=== PATIENT | female | born 1975 | race Caucasian/White ===

== ENCOUNTER → 2022-11-15 | Outpatient (CLI) | payer OTHER ==
--- NOTE | 2022-11-16 21:41 | MR ---
EXAMINATION TYPE: MR shoulder RT wo con DATE OF EXAM: 11/15/2022 COMPARISON: Radiograph 11/06/2022 HISTORY: 47-year-old female M25.511, Rt shoulder pain TECHNIQUE: Multiplanar, multisequence imaging of the right shoulder is performed without contrast. FINDINGS: The long biceps tendon is perched medially overlying the lesser tuberosity. Suspect fraying and fissuring at the junction of the intracapsular and extracapsular portions of the tendons. Mild t o moderate tenosynovial fluid along the groove. These changes suggest partial tear of the superior fibers of the subscapularis tendon. The majority o f the tendon appears intact. Mild degenerative change at the AC joint. No significant mass effect onto the underlying cuff. Heterogeneous signal throughout the supraspinatus and infraspinatus tendons. There is a bursal sided tear of the anterior to mid supraspinatus tendon measuring 1.3 cm long and 1. 7 cm AP. There involves more than 50% thickness. Intermediate signal within the overlying subacromial/subdeltoid bursa along with mild to moderate foc al effusion below the acromion. No significant atrophy of the rotator cuff musculature. There is moderate degenerative change at the glenohumeral joint with irregular cartilage loss and mar ginal spurring. Abnormal signal extending into the substance of the superior labrum with blunted and degenerative posterior labrum. There is a small to moderate left joint effusion with underlying moder ate chronic synovitis. No Hill-Sachs deformity or os acromiale. Patchy red marrow is present and can be seen in setting of a nemia, obesity, smoking, chronic disease. IMPRESSION: 1. Diffuse rotator cuff tendinosis. There is a high-grade bursal sided tear of the anterior to mid hernandez praspinatus tendon measuring 1.3 cm long by 1.7 cm AP. No rotator cuff muscle atrophy. 2. Tear of the superior subscapularis tendon allowing for perching of the long head biceps tendon med ially along the upper bicipital groove. The majority of the tendon remains intact. 3. Mild long head biceps tenosynovitis. There appears to be fraying and fissuring of the tendon at th e junction of the intracapsular and extracapsular portions. 4. Moderate glenohumeral joint OA with small joint effusion but with moderate chronic synovitis. Acco mpanying SLAP tear. 5. Mild AC joint OA.
== END | disposition home or self-care (01) ==
LOC: RADMRIMAIN 12:52
PROVIDERS: ATTEND Orthopaedic Surgery
DX: M19.011 Primary osteoarthritis, right shoulder (principal); M25.411 Effusion, right shoulder

== ENCOUNTER → 2022-12-20 | Outpatient (CLI) | payer OTHER ==
[2022-12-20 15:21] LABS: Basophils # (A) 0.07 X 10*3/uL (0.00-0.10); Basophils % (A) 1.1 %; Eosinophils # (A) 0.13 X 10*3/uL (0.04-0.35); HCT 40.5 % (37.2-46.3); HGB 13.3 d/dL (12.0-15.0); Lymphocytes # (A) 2.19 X 10*3/uL (0.90-5.00); MCH 31.2 pg (27.0-32.0); MCHC 32.8 d/dL (32.0-37.0); MCV 95.1 FL (80.0-97.0); Monocytes # (A) 0.55 X 10*3/uL (0.20-1.00); Monocytes % (A) 8.3 %; NRBC Per 100 WBC 0 X 10*3/uL (0.00-0.01); Neutrophils # (A) 3.69 X 10*3/uL (1.80-7.70); Neutrophils % (A) 55.4 %; Platelet Count 350 X 10*3/uL (140-440); RBC 4.26 X 10*6/uL (4.10-5.20); RDW 13.7 % (11.5-14.5); WBC 6.64 X 10*3/uL (4.50-10.00)
[2022-12-20 20:11] LABS: Anion Gap 10.7 mmol/L (4.00-12.00); Carbon Dioxide 26.3 mmol/L (21.6-31.8); Potassium 4.7 mmol/L (3.5-5.5)
== END | disposition home or self-care (01) ==
LOC: LABPAT 10:57
PROVIDERS: ATTEND Orthopaedic Surgery
DX: Z01.812 Encounter for preprocedural laboratory examination (principal); M75.41 Impingement syndrome of right shoulder
CPT/HCPCS: 80051; 85025

== ENCOUNTER 2023-01-01 06:47 | Day surgery (SDC) | payer OTHER ==
[2022-12-30 11:52] VITALS: BMI 25.3
[2023-01-01] MEDS ORDERED: LIDOCAINE 1% (10MG/ML) FOR IV START INTRADERMA ONE (07:28)
[2023-01-01] MEDS ORDERED: LACTATED RINGERS 1,000 ML IV ONE ×2 (07:28→09:50)
[2023-01-01] MEDS ORDERED: ONDANSETRON 4 MG/2 ML VIAL ONE (07:31)
[2023-01-01] MEDS ORDERED: DEXAMETHASONE SOD PHOSPHATE 4 MG/ML 1 ML VIAL IV ONE (07:34)
[2023-01-01] MEDS ORDERED: MIDAZOLAM 2 MG/2 ML VIAL IVP ONE (07:53)
--- NOTE | 2023-01-01 08:16 | HP ---
HISTORY AND PHYSICAL DATE OF SURGERY: 01/01/2023. HISTORY OF PRESENT ILLNESS: Jorge Echavarria is a 47-year-old patient, seen with progressive right shoulder pain. We discussed options for treatment. The patient elected to proceed with right shoulder arthroscopy. Consent regarding procedure obtained. PAST MEDICAL HISTORY: Noncontributory. PAST SURGICAL HISTORY: Nasal surgery. DAILY MEDICATIONS: Aleve. ALLERGIES: 1. Penicillin. 2. Sulfa. SOCIAL HISTORY: The patient denies tobacco use. PHYSICAL EVALUATION OF THE RIGHT SHOULDER: Flexion is 140 degrees, abduction is 110 degrees, external rotation is 30 degrees with pain and weakness. Tenderness along the anterolateral acromion and rotator cuff insertion site. Impingement sign is positive at 70 degrees. Cross-body adduction sign is positive. Drop-arm sign is positive. Distal neurovascular exam is intact. IMAGING STUDIES: Radiographs of the right shoulder revealed a type 2 acromion along with cystic changes of the tuberosity. An MRI of the right shoulder revealed rotator cuff tear, labral tear, osteoarthritic changes, and partial biceps tendon tear. IMPRESSION: 1. Right shoulder impingement with rotator cuff tear. 2. Right shoulder labral tear. 3. Right shoulder partial long head biceps tendon tear. 4. Right shoulder moderate glenohumeral joint osteoarthritis. PLAN: Right shoulder arthroscopy with subacromial decompression, arthroscopic rotator cuff repair, biceps tenodesis, and debridement. MMODL / IJN: [id number] /
[2023-01-01] MEDS ORDERED: PROPOFOL 10 MG/ML 20 ML VIAL IV ONE (08:22)
[2023-01-01] MEDS ORDERED: MIDAZOLAM 2 MG/2 ML VIAL ONE (08:22)
[2023-01-01] MEDS ORDERED: PHENYLEPHRINE-0.9% NACL SYG 1,000 MCG/10 ML SYRINGE ONE (08:22)
[2023-01-01] MEDS ORDERED: fentaNYL (PF) 50 MCG/ML 2 ML AMP ONE (08:22)
[2023-01-01] MEDS ORDERED: ROPIVACAINE 5 MG/ML 30 ML VIAL ONE (08:22)
[2023-01-01] MEDS ORDERED: KETOROLAC 30 MG/ML 1 ML VIAL ONE (08:22)
[2023-01-01] MEDS ORDERED: SUCCINYLCHOLINE CHLORIDE 200 MG/10 ML VIAL IV ONE (08:22)
[2023-01-01] MEDS ORDERED: DEXAMETHASONE SOD PHOSPHATE 4 MG/ML 1 ML VIAL ONE (08:22)
[2023-01-01] MEDS ORDERED: LIDOCAINE 2% INJ 20 MG/ML (2 ML VIAL) ONE (08:22)
[2023-01-01] MEDS ORDERED: ROCURONIUM 10 MG/ML (5 ML VIAL) IV ONE (08:22)
--- NOTE | 2023-01-01 10:21 | P.OP ---
Date of Procedure: 01/01/23 Preoperative Diagnosis: Right shoulder impingement Postoperative Diagnosis: 1. Right shoulder rotator cuff tear 2. Right shoulder impingement 3. Right shoulder labral tear 4. 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 Right shoulder grade 3/4 chondromalacia glenoid fossa Procedure(s) Performed: 1. Arthroscopic rotator cuff repair right shoulder 2. Arthroscopic subacromial decompression right shoulder 3. Arthroscopic debridement labral tear right shoulder Implants: 4Arthrex 4.75 swivel lock anchors Anesthesia: GETA, regional (Interscalene block) Surgeon: Basil Ramesh [employer] Tester #1: Segundo Alexander Estimated Blood Loss (ml): 11 Pathology: none sent Condition: stable Disposition: PACU Indications for Procedure: 47-year-old patient seen with progressive right shoulder pain. After having treatment options discussed, she elected to proceed with arthroscopy. Operative Findings: See description of procedure Description of Procedure: Patient underwent an interscalene block by department of anesthesia. The patient was then taken to the operative suite. The patient underwent a general anesthetic by the department of anesthesia. The patient was placed into a lateral position and secured. There was appropriate padding of the bony prominence. Right shoulder was then prepped and draped in normal sterile orthopedic fashion. We placed the extremity in 10 pounds of longitudinal traction. A posterior incision was now made for a posterior working portal site. The trocar and cannula were inserted into the glenohumeral joint. Arthroscopy wa s initiated. Spinal needle was now inserted anteriorly, to ascertain the anterior working portal site. An incision was now made in that area, a trocar was inserted followed by a probe. There was some superficial tearing of the superior and anterior labrum. There were grade 4 chondromalacia changes of the humeral head with a large area of exposed bone. There were grade 3/4 chondromalacia changes of the glenoid fossa. There was some mild partial tearing long head biceps tendon. I debrided out the superficial labral tears along with a partial tearing long head biceps tendon. The residual labrum was probed and was found to be stable. Instruments were now removed from glenohumeral joint. Utilizing the posterior working portal site, the trocar and cannula were inserted into the subacromial space. Arthroscopy initiated. I made an incision 2 fingerbreadths lateral to the acromion. I introduced my trocar followed by my ArthroCare ablator. I now began ablating thick subacromial bursal tissue, which exposed the undersurface of the anterior acromion. There was diminished subacromial space. There was a very prominent anterior acromion. A motorized bur was introduced and a subacromial decompression was performed. I also excised some osteophytes off the inferior aspect of the distal clavicle. The AC joint was visualized and noted to mildly arthritic, I did not think enough [facility]. I turned my attention to the rotator cuff. There was a 22.5 cm rotator cuff tear. I debrided the margins getting down to stable tendon tissue. The defect/tear measured around 2.5 cm it was freely mobile over the footprint. I introduced my motorized bur and abraded the footprint area, getting some petechial bleeding. I now made an accessory portal site off the lateral aspect of the acromion. I punched 2 holes medial for medial row fixation with the assistance of Wali ALMANZAR carefully tapping the punch with a mallet as I held the punch and the camera. I now introduced both anchors into the pre- punched holes and Wali ALMANZAR tapped them with the mallet as I held anchors and the camera. Wali ALMANZAR now screwed the anchors in place a while I held the anchor guide and camera. All 8 limbs of suture were now passed through good bites of rotator cuff tendon. I now punched 2 holes for lateral row fixation again I held the punch and camera while Wali ALMANZAR used a mallet to tap in the punch. We now passed sutures through both anchors and individually I introduced the anchors into the pre-punch holes I held the anchor guide in position with one hand holding the camera with the other hand while Wali ALMANZAR tensioned the sutures and screwed in the anchors one at a time. All residual suture limbs were now clipped. We had good compression of the tendon along the entire footprint. Instruments now removed from the portal sites. All portal sites were approximated with nylon suture. Sterile dressings were applied followed by a shoulder immobilizer. Segundo ALMANZAR assisted in this complex case. The patient was awakened, transferred to a bed, and taken to recovery in stable condition.
[2023-01-01 10:26] VITALS: TEMP 97
[2023-01-01 13:14] VITALS: BP 131/89; PULSE 66; RESP 16
--- NOTE | 2023-01-02 10:29 | P.ANPRN ---
Procedure Note - Anesthesia - Nerve Block Performed Right Interscalene Single Time Out Performed: Yes Date of Procedure: 01/01/23 Procedure Start Time: 07:53 Procedure Stop Time: 07:58 Location of Patient: PreOp Indication: Acute Post-Operative Pain, Requested by Surgeon Sedation Type: Sedate with meaningful contact maintained Preparation: Sterile Prep Position: Supine Needle Types: Pajunk Needle Gauge: 21 Ultrasound used to visualize needle placement: Yes Ultrasound used to observe medication spread: Yes Blood Aspirated: No Pain Paresthesia on Injection Noted: No Resistance on Injection: Normal Image Stored and Saved: Yes Events: Uneventful and Well Tolerated (Ropivacaine 0.5% 20 mL plus dexamethasone 4 mg)
== END 2023-01-01 11:58 | disposition home or self-care (01) ==
LOC: OR 06:47
PROVIDERS: ATTEND Orthopaedic Surgery
DX: M75.41 Impingement syndrome of right shoulder (principal); M75.101 Unspecified rotator cuff tear or rupture of right shoulder, not specified as traumatic; G89.18 Other acute postprocedural pain; S43.491A Other sprain of right shoulder joint, initial encounter; M94.261 Chondromalacia, right knee; F17.210 Nicotine dependence, cigarettes, uncomplicated; Z88.0 Allergy status to penicillin; Z88.2 Allergy status to sulfonamides; Z79.899 Other long term (current) drug therapy; X58.XXXA Exposure to other specified factors, initial encounter
CPT/HCPCS: 64415; 81025; 29827; 29826; C1894; C1713; J2250; J0330; J1100; J2405; J0690; J3010; J1885; J2795; J2704; J2001; J2371

== ENCOUNTER → 2023-08-12 | Outpatient (CLI) | payer OTHER ==
--- NOTE | 2023-08-13 09:01 | MM ---
Reason for Exam: Screening (asymptomatic). Baseline mammogram. Patient History: Menarche at age 10. First Full-Term at age 19. Patient has history of breast feeding. Last menstrual period: 06/22/2023 Risk Values: Penny 5 year model risk: 0.9%. NCI Lifetime model risk: 8.9%. Prior Study Comparison: Patient's first Mammogram. Tissue Density: The breasts are extremely dense, which lowers the sensitivity of mammography. Findings: Analyzed By CAD. Right breast: There is no suspicious group of microcalcifications or new suspicious mass. Left breast: There is no suspicious group of microcalcifications or new suspicious mass. Overall Assessment: Negative, BI-RAD 1 Management: Screening Mammogram of both breasts in [address] [facility] will attempt to contact patient to return for supplemental views and ultrasound if indicated. Patient should continue monthly self-breast exams. A clinical breast exam by your physician is recommended on an annual basis. This exam should not preclude additional follow-up of suspicious palpable abnormalities. Note on Penny scores and lifetime risk: 1. A Penny score greater than 3% is considered moderate risk. If this is the case, consider specialist referral to assess eligibility for a risk reducing agent. 2. If overall lifetime risk for the development of breast cancer is 20% or higher, the patient may qualify for future screening with alternating mammogram and breast MRI. Electronically signed and approved by: Richie Brady DO
== END | disposition home or self-care (01) ==
LOC: RADMAMWWP 11:39
PROVIDERS: ATTEND Family Medicine
DX: Z12.31 Encounter for screening mammogram for malignant neoplasm of breast (principal)
CPT/HCPCS: 77063; 77067

== ENCOUNTER → 2024-01-19 | Outpatient (CLI) | payer OTHER ==
--- NOTE | 2024-01-20 10:29 | MR ---
EXAMINATION TYPE: MR cervical spine wo con DATE OF EXAM: 01/19/2024 1:31 PM COMPARISON: NONE HISTORY: Pain and numbness in left arm and hand Multiplanar MultiSpin echo imaging of the cervical spine was performed. Comparison: none C2-C3: No evidence for degenerative disc disease. No disc bulge/herniation or protrusion. No Canal stenosis. Foramina are patent bilaterally. C3-C4: No evidence for degenerative disc disease. No disc bulge/herniation or protrusion. No Canal stenosis. Foramina are patent bilaterally. C4-C5: Moderate disc desiccation with posterior disc bulge greatest posterior centrally and to the ri ght. There is moderate right foraminal encroachment. No central stenosis appreciated. C5-C6: Moderate to severe disc desiccation with broad-based posterior disc bulge. Mild effacement ramirez tral thecal sac and moderate bilateral foraminal encroachment and mild cervical apophyseal joint arth ropathy. C6-C7: Severe disc desiccation with posterior disc bulge mildly degree. No evidence for herniation or central stenosis. No foraminal encroachment at this time. No Canal stenosis. Foramina are patent bi laterally. C7-T1: No evidence for degenerative disc disease. No disc bulge/herniation or protrusion. No Canal stenosis. Foramina are patent bilaterally. Cervical segments are intact. There is normal alignment. Cervical spinal cord is of normal signal. Craniovertebral junction relationships are within normal limits. Scattered ventral spondylosis. IMPRESSION: 1. 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 [facility], , 01/20/2024 10:26 AM
== END | disposition home or self-care (01) ==
LOC: RADMRIMAIN 12:55
PROVIDERS: ATTEND Orthopaedic Surgery
DX: M62.81 Muscle weakness (generalized) (principal); M99.71 Connective tissue and disc stenosis of intervertebral foramina of cervical region; M50.10 Cervical disc disorder with radiculopathy, unspecified cervical region
CPT/HCPCS: 72141

== ENCOUNTER → 2024-06-10 | Outpatient (CLI) | payer OTHER ==
[2024-06-10 10:46] VITALS: BP 108/72; PULSE 86; RESP 16; TEMP 98.3
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
== END ==
LOC: 3 N SLEEP 10:17
PROVIDERS: ATTEND Internal Medicine
DX: G47.33 Obstructive sleep apnea (adult) (pediatric) (principal); I10 Essential (primary) hypertension; M13.0 Polyarthritis, unspecified; Z98.890 Other specified postprocedural states; F12.90 Cannabis use, unspecified, uncomplicated; Z88.1 Allergy status to other antibiotic agents; Z88.0 Allergy status to penicillin; Z88.2 Allergy status to sulfonamides
CPT/HCPCS: 99211

== ENCOUNTER 2024-07-07 19:36 | Outpatient (CLI) | payer OTHER ==
--- NOTE | 2024-07-15 11:31 | P.PCN ---
Description of Procedure: POLYSOMNOGRAPHY REPORT PROCEDURE(S)/DATE(S): Polysomnography 10/01/2024 CLINICAL: Patient has been seen in the sleep center for evaluation of obstructive sleep apnea-hypopnea syndrome. Please see my consultation. Sleep study has been done for evaluation of patient breathing during the sleep. PROCEDURE: The standard montage for clinical polysomnography included the electroencephalogram, the electrooculogram, the mentalis surface electromyography and Lead II cardiography. The respiratory battery consisted of measurements of nasal/buccal air flow, pressure transducer measurements from nose, thoracic and/or abdominal effort and intercostal surface electromyography. Video monitoring has been done to check for any parasomnia events. Nocturnal oxyhemoglobin saturations were obtained by finger oximetry. Step-puga titration with positive airway pressure was utilized to control the respiratory events, if necessary. RESULTS: During the diagnostic sleep study sleep efficiency was normal 92.1%. Latency to sleep onset was normal 20.5 min. Sleep architecture showed stage NI was extremely high 32.3%, Delta sleep was absent 0%, REM sleep was close to normal 18.4%. Respiratory channel showed 1 obstructive apneas, 0 mixed apneas, 0 central apneas, 305 hypopneas with lowest oxygen level 78%. Total apnea hypopnea index was 51.5. Heart rate was in the range between 46 and 99, average 65. EMG showed 0 periodic limb movements per hour with 0 micro-arousals per hour. IMPRESSIONS: 1. Severe obstructive sleep apnea hypopnea syndrome. 2. No significant periodic limb movements have been documented. Please see other impressions from consultation PLAN: 1. The patient will have PAP titration for correction of respiratory abnormalities during the sleep. 2. No driving if feeling sleepiness. 3. Sleep hygiene with regular time in bed for at least 7-1/2 hours. Sincerely, Nikita Rosen MD, PhD, FAASM. Diplomat of [place] Board [employer] Medicine, Sleep Medicine Board by [place] Board of [employer] Medicine Materials Technician of [facility] [place] cc: Dea Lopez MD
== END 2024-07-08 05:30 | disposition home or self-care (01) ==
LOC: 3 N SLEEP 19:36
PROVIDERS: ATTEND Internal Medicine
DX: G47.33 Obstructive sleep apnea (adult) (pediatric) (principal); Z88.1 Allergy status to other antibiotic agents; Z88.0 Allergy status to penicillin; Z88.2 Allergy status to sulfonamides; F12.90 Cannabis use, unspecified, uncomplicated
CPT/HCPCS: 95810

== ENCOUNTER 2024-08-10 19:41 | Outpatient (CLI) | payer OTHER ==
--- NOTE | 2024-08-11 10:53 | P.PCN ---
Description of Procedure: CLINICAL: Titration with positive air pressure has been done for correction of respiratory abnormalities during sleep. DESCRIPTION OF PROCEDURE: The standard montage for clinical polysomnography included the electroencephalogram, the electrocardiogram, the mentalis surface electromyography and Lead II cardiography. The respiratory battery consisted of measurements of nasal /buccal air flow, pressure transducer measurements from the nose, thoracic and /or abdominal effort and intercostal surface electromyography. Video monitoring has been done to check for any parasomnia events. Nocturnal oxyhemoglobin saturations were obtained by finger oximetry. Step-puga titration with positive airway pressure was utilized to control respiratory events. Raw data of sleep recording has been reviewed and is adequate. RESULTS: Sleep efficiency was normal 88.8%. Latency to sleep onset was borderline 26.5 minutes.]. Sleep architecture showed stage N1 was extremely short 0.1%, Delta sleep was absent 0%, REM sleep significantly increased to 37.1%, possibly REM sleep rebound phenomenon on CPAP. Heart rate was minimum 64 BPM, maximum 72 BPM, average 68 BPM. EMG showed 2 periodic limb movements per hour with 1.2 micriarousals per hour. PAP titration have been done with CPAP up to the pressure 10 cm H2O. The best results were at the pressure 7 cm H2O. Apnea hypopnea index reduced to 4.2, but the patient was not in rem sleep during the sleep study. IMPRESSION: 1. Extremely severe obstructive sleep apnea hypopnea syndrome with original apnea hypopnea index 51.5 mostly on controle with PAP treatment. 2. No significant periodic limb movements have been documented. Please see other impressions from consultation. PLAN: 1. The patient will have treatment with positive air pressure equipment with the level of pressure AutoPap 5-10 cm H2O and should use it every night for the whole night. 2. Watching weight. 3. Sleep hygiene with regular time in bed for at least 8 hours. 4. No driving if feeling any sleepiness. 5. I will see the patient for follow up visit to explain the results of the test, recommendations, check compliance with treatment and make any necessary adjustment related to mask fitting, pressure and humidification. Thank you very much for allowing me to participate in the management of your patient. Sincerely, Nikita Rosen MD, PhD, FAASM Diplomat of [place] [employer] Sleep Medicine Board of [place] Board of Internal Medicine Photograph Developer of [facility] [place] cc: Dea Lopez MD
== END 2024-08-11 06:00 | disposition home or self-care (01) ==
LOC: 3 N SLEEP 19:41
PROVIDERS: ATTEND Internal Medicine
DX: G47.33 Obstructive sleep apnea (adult) (pediatric) (principal); Z88.2 Allergy status to sulfonamides; Z99.89 Dependence on other enabling machines and devices; Z88.1 Allergy status to other antibiotic agents; Z88.0 Allergy status to penicillin; F12.90 Cannabis use, unspecified, uncomplicated
CPT/HCPCS: 95811